=== PATIENT | male | born 1975 | race American Indian/Alaskan Native ===

== ENCOUNTER 2021-01-11 15:39 | Emergency (ER) | payer MEDICAID ==
[~2021-01-11] VITALS: Ht 172.7 cm; Wt 81.8 kg
[2021-01-11 15:54] VITALS: BP 118/99
[2021-01-11] MEDS ORDERED: LORA-269 PO (16:05)
[2021-01-11] MEDS ORDERED: GABA300C PO (16:05)
--- NOTE | 2021-01-11 16:18 | NUR ---
PT DISCHARGED FROM LOBBY BEFORE NURSING ASSESSMENTS DONE
== END 2021-01-11 16:50 | disposition home or self-care (01) ==
LOC: ER 15:40
DX: F10.129 Alcohol abuse with intoxication, unspecified (principal); Y90.9 Presence of alcohol in blood, level not specified
CPT/HCPCS: 99283